=== PATIENT | male | born 1960 | race Caucasian/White ===

== ENCOUNTER 2019-11-15 04:11 | Inpatient (IN) | payer SELFPAY ==
[~2019-11-15] VITALS: Ht 160 cm; Wt 74.6 kg
[2019-11-15] VITALS (14 sets, daily range): BP systolic 104–138; BP diastolic 59–88
[2019-11-15 04:36] LABS: BASOPHILS % (AUTO) 0.3 % (0.0-5.0); EOSINOPHILS % (AUTO) 0.1 % (0.0-8.0); HEMATOCRIT 52.9 % (42-54); MEAN CORPUSCULAR HEMOGLOBIN 31.6 pg (27.0-33.0); MEAN CORPUSCULAR HGB CONC 35.2 g/dL (32.0-36.0); NEUTROPHILS % (AUTO) 89.9 % (40.0-77.0); PLATELET COUNT (AUTO) 247 K/uL (130-400); RED BLOOD CELL COUNT(AUTO) 5.88 MIL/uL (4.50-6.20); RED CELL DISTRIBUTION WIDTH 11.7 % (11.0-15.5); WHITE BLOOD COUNT (AUTO) 14.3 K/uL (4.8-10.8)
[2019-11-15] MEDS ORDERED: ONDANSETRON HCL 4 MG/2 ML VIAL ONE (04:46)
[2019-11-15 04:47] LABS: ALBUMIN 4.5 g/dL (3.5-5.0); BILIRUBIN,TOTAL 0.6 mg/dL (0.2-1.0); CREATININE 1.5 mg/dL (0.5-1.5); INR 0.96 (0.85-1.15); PARTIAL THROMBOPLASTIN TIME 24.3 SEC (26.3-35.5); POTASSIUM 4.7 mmol/L (3.5-5.1); PROTHROMBIN TIME 10.4 SEC (9.6-11.6); TOTAL PROTEIN, SERUM 8.5 g/dL (6.0-8.3)
[2019-11-15] MEDS ORDERED: MORPHINE SULFATE 4 MG/1ML SYG ONE (04:50)
[2019-11-15 05:08] LABS: CREATINE KINASE, TOTAL 47 U/L (21-232); LIPASE 51 U/L (114-286)
[2019-11-15] MEDS: LACTATED RINGERS 1000ML 1,000 ML IV SCH ×2 (07:05→17:22)
[2019-11-15] MEDS ORDERED: LACTULOSE 20 GM/30 ML UDCUP PO PRN (07:15)
[2019-11-15] MEDS ORDERED: ONDANSETRON HCL 4 MG/2 ML VIAL IV PRN (07:15)
[2019-11-15] MEDS ORDERED: ACETAMINOPHEN 325 MG TAB PO PRN ×2 (07:15)
[2019-11-15] MEDS ORDERED: LACTATED RINGERS 1000ML 1,000 ML IV ONE (07:51)
[2019-11-15 08:06] LABS: APPEARANCE,URINE Clear (CLEAR); BILIRUBIN,URINE Negative (NEGATIVE); COLOR,URINE Yellow (YELLOW); GLUCOSE, URINE (UA) >=1000 mg/dL (NEGATIVE); KETONES,URINE >=80 mg/dL (NEGATIVE); LEUKOCYTE ESTERASE ,URINE Small (NEGATIVE); NITRATE,URINE Negative (NEGATIVE); OCCULT BLOOD,URINE Negative (NEGATIVE); PROTEIN,URINE Negative (NEGATIVE); UROBILINOGEN,URINE 0.2 mg/dL (0.2-1.0)
[2019-11-15 08:13] LABS: AMPHET/METH SCREEN,URINE NEGATIVE (NEGATIVE); BARBITURATE SCREEN, URINE NEGATIVE (NEGATIVE); BENZODIAZEPINES SCREEN,URINE NEGATIVE (NEGATIVE); CANNABINOID SCREEN,URINE NEGATIVE (NEGATIVE); COCAINE SCREEN,URINE POSITIVE (NEGATIVE); OPIATE SCREEN,URINE NEGATIVE (NEGATIVE); PHENCYCLIDINE SCREEN,URINE NEGATIVE (NEGATIVE)
[2019-11-15 08:19] LABS: WBC,URINE 26-50 /HPF (0-1)
[2019-11-15 08:20] LABS: BACTERIA,URINE Few /HPF (None Seen); SQUAMOUS EPITHELIAL CELL,UR Rare /HPF (0-2); YEAST,URINE BUDDING Moderate /HPF (None Seen)
[2019-11-15 08:52] LABS: HEMATOCRIT 43.5 % (42-54)
[2019-11-15] MEDS ORDERED: LORAZEPAM 2 MG/ML 1 ML VIAL IVP PRN (09:45)
[2019-11-15] MEDS ORDERED: PROMETHAZINE HCL 25 MG TABLET PO PRN (09:45)
[2019-11-15] MEDS ORDERED: CHLORDIAZEPOXIDE HCL 25 MG CAP PO PRN (09:45)
[2019-11-15] MEDS ORDERED: PHARMACY COMMUNICATION MISC PRN (09:45)
--- NOTE | 2019-11-15 09:50 | NUR ---
Chart reviewed, ACF uploaded to one content Addendum: 11/15/19 at 1432 by JOSE FRANCISCO SUE RN CM Amended: Links added.
[2019-11-15] MEDS ORDERED: GLUCAGON 1MG KIT 1 MG ML IM PRN (10:00)
[2019-11-15] MEDS ORDERED: DEXTROSE 50%-WATER 50 ML DISP.SYRIN IV PRN (10:00)
[2019-11-15] MEDS: PANTOPRAZOLE SODIUM 80 MG in SODIUM CHLORIDE 0.9% 100 ML IV SCH (10:07)
[2019-11-15] MEDS ORDERED: THIAMINE HCL 100 MG, FOLIC ACID 1 MG, M.V.I. IV [ADULT] 10 ML in SODIUM CHLORIDE 0.9% 1... IV SCH (10:09)
[2019-11-15] MEDS: OCTREOTIDE ACETATE 1,250 MCG in SODIUM CHLORIDE 0.9% 250 ML IV SCH (10:57)
[2019-11-15] MEDS: MORPHINE SULFATE 4 MG/1ML SYG IV PRN ×2 (11:09→18:38)
[2019-11-15] MEDS ORDERED: INSULIN HUMULIN R 100 UNIT/ML 3ML SQ SCH (11:30)
[2019-11-15] MEDS: INSULIN HUMULIN R 100 UNIT/ML 3ML SQ SCH ×3 (12:00→20:41)
--- NOTE | 2019-11-15 14:37 | NUR ---
ATTEMPTED CALL TO CALL CORDLEIA SARAI CALL TO CORDELIA DRISCOLLLEEN FOR CM ASSESSMENT- NO ANSWER Addendum: 11/15/19 at 1438 by JOSE FRANCISCO SUE RN CM Amended: Links added.
--- NOTE | 2019-11-15 15:08 | NUR ---
INITIAL ASSESSMENT BY PHONE CALL TO PATIENT NO ANSWER CALL TO MOM, NO ANSWER. CALL BACK FORM MOM VERY EMOTIONAL. STATES VERY WORRIED ABOUT PATIENT, LIVES IN [place], NO OTHER FAMILY, STATES PATIENT HAS BEEN A DRINKER, LONG HISTORY OF ALCOHOL USE, STATES PATIENT TOLD HER HE HAD ESOPHAGEAL VARICES(?) AND NEEDED TERM EXPLAINED. PATHO OF VARICES EXPLAINED TO MOM AND PLAN OF CARE DESCRIBED, INCLUDING PROTOCOL OF WATCHING FOR WITHDRAWAL, STATES PATIENT LIVES OFF [employer] AND "HOSPITAL BILLS WILL BE PAID". CALL TO PATIENT, CALL ANSWERED, ORIENTED AND ALERT- LIVES ALONE ON [address]- RECENTLY MOVED DOWN A YEAR & A HALF AGO. NO DME, INDEPENDENT, DRIVES HIS BIKE ONLY, HAS NO CAR ....PATIENT STATES HAS NO FRIENDS OR NEIGHBORS THAT CAN COME AND PICK HIM UP. [facility] WILL GET CAB AT DISCHARGE. SEES DR. ADLER IN [place]. [facility] CORDELIA MOON IN [place] IS HIS ONLY LIVING RELATIVE , IS [place], CAN BE ADVISED OF HEALTH UPDATES- EXCLUDING DRUG TESTS OR INFORMATION ABOUT ALCOHOL/DRUGS. PLAN OF CARE DISCUSSED. DECLINED SOCIAL SERVICE REFERRAL RE AA OR SUBSTANCE ABUSE TREATMENT. CM TO FOLLOW Addendum: 11/15/19 at 1524 by JOSE FRANCISCO SUE RN CM Amended: Links added.
[2019-11-15] MEDS: INSULIN NPH 100 UNIT/ML 3ML SQ SCH (17:21)
[2019-11-15 21:41] LABS: HEMATOCRIT 46.2 % (42-54)
[2019-11-16] VITALS (12 sets, daily range): BP systolic 95–137; BP diastolic 62–76
[2019-11-16] MEDS: MORPHINE SULFATE 4 MG/1ML SYG IV PRN ×2 (00:39→06:49)
[2019-11-16] MEDS: PANTOPRAZOLE SODIUM 80 MG in SODIUM CHLORIDE 0.9% 100 ML IV SCH (02:26)
[2019-11-16] MEDS: LACTATED RINGERS 1000ML 1,000 ML IV SCH ×2 (02:37→04:44)
[2019-11-16 03:55] LABS: BASOPHILS % (AUTO) 0.2 % (0.0-5.0); EOSINOPHILS % (AUTO) 0.2 % (0.0-8.0); HEMATOCRIT 44.1 % (42-54); LYMPHOCYTES % (AUTO) 7.1 % (21.0-51.0); MEAN CORPUSCULAR VOLUME 91.1 fL (79-99); MONOCYTES % (AUTO) 9.1 % (3.0-13.0); NEUTROPHILS % (AUTO) 82.8 % (40.0-77.0); PLATELET COUNT (AUTO) 262 K/uL (130-400); RED BLOOD CELL COUNT(AUTO) 4.84 MIL/uL (4.50-6.20); RED CELL DISTRIBUTION WIDTH 12.2 % (11.0-15.5); WHITE BLOOD COUNT (AUTO) 24.6 K/uL (4.8-10.8)
[2019-11-16 04:07] LABS: ALBUMIN 3.3 g/dL (3.5-5.0); BILIRUBIN,TOTAL 0.4 mg/dL (0.2-1.0); CREATININE 1.2 mg/dL (0.5-1.5); POTASSIUM 3.9 mmol/L (3.5-5.1); TOTAL PROTEIN, SERUM 6.4 g/dL (6.0-8.3)
[2019-11-16] MEDS ORDERED: DEXTROSE 50%-WATER 25 GM/50 ML VIAL ONE (04:23)
[2019-11-16] MEDS: INSULIN HUMULIN R 100 UNIT/ML 3ML SQ SCH ×2 (05:05→12:00)
[2019-11-16] MEDS: INSULIN NPH 100 UNIT/ML 3ML SQ SCH (07:30)
[2019-11-16 09:03] LABS: HEMATOCRIT 42.2 % (42-54)
--- NOTE | 2019-11-16 10:45 | NUR ---
Patient transferred at this time to PCCU. Patient in stable condition. No complaints of CP, N/V/D, or bloody emesis. Report given to Sarmad MORGAN
--- NOTE | 2019-11-16 11:00 | NUR ---
TRANSFER FROM ICU RECEIVED PT, A&OX3, CALM COOPERATIVE AND DOES NOT APPEAR TO BE IN ANY DISTRESS NOR ANY NEURO DEFICITS PRESENT. PT DENIES PAIN, SOB, NAUSEA. PT IS AMBULATORY, GAIT STEADY AND STRONG WITH STAND BY ASSIST. CALL LIGHT WITHIN REACH.
[2019-11-16] MEDS: SUCRALFATE 1 GM TABLET PO SCH ×3 (11:30→21:16)
[2019-11-16] MEDS: INSULIN LISPRO 100 UNIT/ML 3ML SQ SCH ×4 (11:30→21:00)
--- NOTE | 2019-11-16 15:00 | NUR ---
DR THOMASON, GI CONSULT SPOKE WITH CLINICAL COORDINATOR VIRGIL, PER DR THOMASON RECOMMENDATIONS INCLUDE CBC, CMP IN AM AND WILL FOLLOW UP WITH RESULTS.
[2019-11-16] MEDS ORDERED: INSULIN GLARGINE 100 UNITS/ML 10 ML VIAL SQ SCH (21:00)
[2019-11-16] MEDS: PANTOPRAZOLE 40 MG/VIAL IVP SCH (21:16)
[2019-11-16 21:28] LABS: HEMATOCRIT 45.9 % (42-54)
[2019-11-17 03:34] VITALS: BP 115/77
[2019-11-17 06:02] LABS: BASOPHILS % (AUTO) 0.3 % (0.0-5.0); EOSINOPHILS % (AUTO) 2.5 % (0.0-8.0); HEMATOCRIT 44.1 % (42-54); LYMPHOCYTES % (AUTO) 11.9 % (21.0-51.0); MEAN CORPUSCULAR HEMOGLOBIN 30.6 pg (27.0-33.0); MEAN CORPUSCULAR HGB CONC 33.8 g/dL (32.0-36.0); MEAN CORPUSCULAR VOLUME 90.6 fL (79-99); MONOCYTES % (AUTO) 11.3 % (3.0-13.0); NEUTROPHILS % (AUTO) 73.6 % (40.0-77.0); PLATELET COUNT (AUTO) 184 K/uL (130-400); RED BLOOD CELL COUNT(AUTO) 4.87 MIL/uL (4.50-6.20); RED CELL DISTRIBUTION WIDTH 11.8 % (11.0-15.5); WHITE BLOOD COUNT (AUTO) 10.5 K/uL (4.8-10.8)
[2019-11-17] MEDS: INSULIN LISPRO 100 UNIT/ML 3ML SQ SCH ×5 (06:04→17:00)
[2019-11-17] MEDS: OCTREOTIDE ACETATE 1,250 MCG in SODIUM CHLORIDE 0.9% 250 ML IV SCH (06:22)
[2019-11-17 06:30] LABS: HEMOGLOBIN A1C 10.8 % (4.0-6.0)
[2019-11-17 06:49] LABS: ALBUMIN 2.9 g/dL (3.5-5.0); BILIRUBIN,TOTAL 0.6 mg/dL (0.2-1.0); POTASSIUM 3.6 mmol/L (3.5-5.1)
[2019-11-17 07:30] VITALS: BP 114/80
[2019-11-17] MEDS: SUCRALFATE 1 GM TABLET PO SCH ×3 (08:27→16:54)
[2019-11-17] MEDS ORDERED: Vitamin B Complex/Vit C/Folic Acid PO SCH (09:00)
[2019-11-17] MEDS ORDERED: THIAMINE HCL 100 MG TABLET PO SCH (09:00)
[2019-11-17 11:00] VITALS: BP 111/82
[2019-11-17] MEDS: PANTOPRAZOLE 40 MG/VIAL IVP SCH (11:08)
[2019-11-17 16:00] VITALS: BP 115/68
[2019-11-17] MEDS ORDERED: INSULIN HUMULIN 70/30 100 UNIT/ML 3ML SQ SCH (16:30)
[2019-11-17] MEDS ORDERED: THIA100T91 PO (18:22)
[2019-11-17] MEDS ORDERED: INSLAN SQ (18:22)
[2019-11-17] MEDS ORDERED: SUCR1TAB PO (18:22)
[2019-11-17] MEDS ORDERED: Folic Acid/Vitamin B Comp W-C PO (18:22)
[2019-11-17] MEDS ORDERED: INSU100V SQ (18:22)
[2019-11-17] MEDS ORDERED: PANT40TA PO (18:22)
[2019-11-18] MEDS ORDERED: INSULIN HUMULIN 70/30 100 UNIT/ML 3ML SQ SCH (07:30)
== END 2019-11-17 19:00 | disposition home or self-care (01) | DRG 379 ==
LOC: EDH 04:11 → EDBD 04:11 → EDHIP 04:12 → DAHIP 10:28 → 4DH 11-16 11:04
PROVIDERS: ADMIT Internal Medicine; ATTEND Internal Medicine
DX: K92.2 Gastrointestinal hemorrhage, unspecified (principal); E86.9 Volume depletion, unspecified; D72.829 Elevated white blood cell count, unspecified; E11.65 Type 2 diabetes mellitus with hyperglycemia; Z79.4 Long term (current) use of insulin; Z87.891 Personal history of nicotine dependence; F14.10 Cocaine abuse, uncomplicated; F12.10 Cannabis abuse, uncomplicated
CPT/HCPCS: 36415; 71045; 71250; 74176; 80053; 80305; 81001; 82306; 82550; 82948; 83036; 83690; 83970; 84145; 84443; 84484; 85014; 85018; 85025; 85610; 85730; 86850; 86900; 86901; 87088; 93005; C9113; G0378; G0480; J1815; J2270; J2354; J2405; J3411; J3490; J7030; J7050; J7070; J7120

== ENCOUNTER 2023-09-17 12:38 | Emergency (ER) | payer BC ==
[~2023-09-17] VITALS: Ht 160 cm; Wt 61.7 kg
[~2023-09-17 12:38] MED LIST: Folic Acid/Vitamin B Comp W-C PO; INSLAN SQ; INSU100V SQ; PANT40TA PO; SUCR1TAB PO; THIA100T91 PO
[2023-09-17 13:13] VITALS: BP 108/77; PULSE 88; RESP 20
== END 2023-09-17 15:24 | disposition left against medical advice (07) ==
LOC: EDH 12:38
DX: R13.10 Dysphagia, unspecified (principal); Z53.21 Procedure and treatment not carried out due to patient leaving prior to being seen by health care provider